=== PATIENT | female | born 1975 | race Caucasian/White ===

== ENCOUNTER 2022-11-28 18:54 | Emergency (ER) | payer MEDICAID ==
[~2022-11-28] VITALS: Ht 162.6 cm; Wt 84.0 kg
[2022-11-28 21:00] VITALS: BP 107/73
== END 2022-11-28 21:40 | disposition home or self-care (01) ==
LOC: ER 18:54
DX: R00.2 Palpitations (principal); I10 Essential (primary) hypertension; E11.9 Type 2 diabetes mellitus without complications; E78.00 Pure hypercholesterolemia, unspecified
CPT/HCPCS: 93005; 99283